=== PATIENT | female | born 1940 | race Caucasian/White ===

== ENCOUNTER → 2016-10-10 | Outpatient (CLI) | payer MEDICARE, BC ==
[~2016-10-10] MED LIST: CENTRUM SILVER1 EACH PO; KEFLEX 500MG.500 MG PO; LEVOTHYROXIN0.175 MG OR; LORTAB 500 MG-71 TAB PO; NEURONTIN 300M300 MG PO; SIMVASTATIN10 MG PO; SYNTHROID 0.0.075 MG PO
--- NOTE | 2016-10-10 14:27 | RADIOLOGY REPORT PS360 ---
HIP RT 2-3V W/PELVIS IF PERFOR HISTORY: Follow-up fracture CLOSED FX OF RT HIP ORDERING PHYSICIAN: Patrice Ga MD PATIENT AGE: 76 years COMPARISON: 09/10/2012 FINDINGS: There are 3 hip pins present on the right as before. These are unchanged. There is however some cortical irregularity of the femoral head on the right with subchondral lucencies consistent with right-sided avascular sclerosis. There are mild osteoarthritic changes of the right hip. 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
== END ==
LOC: RAD 12:49
DX: S72.001A Fracture of unspecified part of neck of right femur, initial encounter for closed fracture (principal)

== ENCOUNTER → 2017-04-23 | Outpatient (CLI) | payer MEDICARE, BC ==
[2017-04-23 11:08] LABS: BUN 10 mg/dL (7-18)
[2017-04-23 11:10] LABS: GFR (ESTIMATED) 81 ML/MIN (59-)
== END ==
LOC: LAB 07:54
PROVIDERS: Family Medicine
DX: E78.4 Other hyperlipidemia (principal); R53.83 Other fatigue; E03.9 Hypothyroidism, unspecified